=== PATIENT | female | born 2000 | race Caucasian/White ===

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

== ENCOUNTER 2021-04-11 09:44 | Emergency (ER) | payer OTHER, MEDICAID ==
[~2021-04-11] VITALS: Ht 175.3 cm; Wt 145.6 kg
--- OUTSIDE RECORDS SUMMARY | 2021-04-11 09:55 | CCD ---
Author Author [facility] Organization [facility] Address Unknown Phone Unavailable Care Team Providers Care Certified [place] Administrator Name Role Phone Maring, Darshan PA Unavailable Unavailable Maring, Darshan PA Unavailable Unavailable Maring, Darshan PA Unavailable Unavailable Maring, Darshan PA Unavailable Unavailable Maring, Darshan PA Unavailable Unavailable Maring, Darshan PA Unavailable Unavailable Maring, Darshan PA Unavailable Unavailable Maring, Darshan PA Unavailable Unavailable Maring, Darshan PA Unavailable Unavailable Maring, Darshan PA Unavailable Unavailable Maring, Darshan PA Unavailable Unavailable Maring, Darshan PA Unavailable Unavailable Maring, Darshan PA Unavailable Unavailable Maring, Darsahn PA Unavailable Unavailable Maring, Darshan PA Unavailable Unavailable Maring, Darshan PA Unavailable Unavailable Dille, E Lorena DDS Unavailable Unavailable Dille, E Lorena DDS Unavailable Unavailable Dille, E Lorena DDS Unavailable Unavailable Dille, E Lorena DDS Unavailable Unavailable Re-disclosure Warning The records that you are about to access may contain information from federally-assisted alcohol or drug abuse programs. If such information is present, then the following federally mandated warning applies: This information has been disclosed to you from records protected by federal confidentiality rules (42 CFR part 2). The federal rules prohibit you from making any further disclosure of this information unless further disclosure is expressly permitted by the written consent of the person to whom it pertains or as otherwise permitted by 42 CFR part 2. A general authorization for the release of medical or other information is NOT sufficient for this purpose. The Federal rules restrict any use of the information to criminally investigate or prosecute any alcohol or drug abuse patient.The records that you are about to access may contain highly sensitive health information, the redisclosure of which is protected by Article 27-F of the [facility] Public Health law. If you continue you may have access to information: Regarding HIV / AIDS; Provided by facilities licensed or operated by the [facility] Office of Mental Health; or Provided by the [facility] Office for People With Developmental Disabilities. If such information is present, then the following [facility] mandated warning applies: This information has been disclosed to you from confidential records which are protected by state law. State law prohibits you from making any further disclosure of this information without the specific written consent of the person to whom it pertains, or as otherwise permitted by law. Any unauthorized further disclosure in violation of state law may result in a fine or long term sentence or both. A general authorization for the release of medical or other information is NOT sufficient authorization for further disc losure. Family History Family Member Name Family Member Gender Family Member Status Date o f Status Description Data Source(s) Unknown Male Problem [facility] ([facility]) Encounters Encounter Providers Location Date Indications Data Source(s ) Outpatient Attender: Darshan GUERRIER 10/11/19 05:45:18 PM EDT - 10/10/2020 06:10:53 PM EDT [facility] ([facility] ) [facility]patient [facility]: [facility] 09:42:[address] [facility] Outpatient Attender: Lorena Dyanagrady [facility] 02/19/2020 03:02:[address] [facility] Immunizations Vaccine Date Status Description Data Source(s) COVID-19 VACCINE Moderna 10/10/2020 12:00:00 AM EDT completed [facility] Vaccine Series Complete: YESThis Data wa s Submitted to [facility] Via [facility]. COVID-19 VACCINE Moderna 09/08/2020 12:00:00 AM EDT completed [facility] Vaccine Series Complete: NOThis Data was Submitted to [facility] [employer]. Medications Medication Brand Name Start Date Product Form Dose Route Admi nistrative Instructions Pharmacy Instructions Status Indications Reaction Description Data Source(s) 800 mg 10/10/2020 12:00:00 AM EDT tablet 30 TAKE ONE TABLET BY MOUTH THREE TIMES A DAY FOR 10 DAYS TAKE ONE TABLET BY MOUTH THREE TIMES A DAY FOR 10 DAYS SOLD: 10/11/2020 [facility] 4 % 10/10/2020 12:00:00 AM EDT adhesive patch,medicate d 15 APPLY 1 PATCH ONCE DAILY FOR 12 HOURS ON, 12 HOURS OFF FOR 15 DAYS APPLY 1 PATCH ONCE DAILY FOR 12 HOURS ON, 12 HOURS OFF FOR 15 DAYS SOLD: 10/11/2020 [facility] Cyclobenzaprine hydrochloride 10 MG Oral Tablet CYCLOBENZAPR INE HCL 10/10/2020 12:00:00 AM EDT tablet 10 TAKE ONE TABLET BY MOUTH AT BEDTIME FOR 10 DAYS TAKE ONE TABLET BY MOUTH AT BEDTIME FOR 10 DAYS SOLD: 10/11/2020 [facility] 875-125 mg 08/16/2020 12:00:00 AM EDT tablet 20 TAKE ONE TABLET BY MOUTH EVERY 12 HOURS FOR 10 DAYS TAKE ONE TABLET BY MOUTH EVERY 12 HOURS FOR 10 DAYS SOLD: 08/16/2020 [facility] 37.5 mg 07/08/2020 12:00:00 AM EST tablet extended release 24hr 60 TAKE ONE TABLET BY MOUTH TWICE A DAY TAKE ONE TABLET BY MOUTH TWICE A DAY SOLD: 07/08/2020 [facility] 25 mg 06/23/2020 12:00:00 AM EST capsule 30 TAKE ONE CAPSULE BY MOUTH EVERY DAY TAKE ONE CAPSULE BY MOUTH EVERY DAY SOLD: 06/28/2020 [facility] quetiapine 100 MG Oral Tablet QUETIAPINE FUMARATE 04/08/2020 12: 00:00 AM EST tablet 30 TAKE ONE TABLET BY MOUTH EVERY D AY AT BEDTIME TAKE ONE TABLET BY MOUTH EVERY DAY AT BEDTIME SOLD: 04/14/2020 [facility] Clonidine Hydrochloride 0.3 MG Oral Tablet CLONIDINE HCL 04/08/2020 12:00:00 AM EST tablet 30 TAKE ONE TABLET BY MOUTH KRYSTAL RY DAY AT BEDTIME TAKE ONE TABLET BY MOUTH EVERY DAY AT BEDTIME SOLD: 04/14/2020 [facility] Clonidine Hydrochloride 0.3 MG Oral Tablet CLONIDINE HCL 03/02/2020 12:00:00 AM EDT tablet 30 TAKE ONE TABLET BY MOUTH KRYSTAL RY DAY AT BEDTIME TAKE ONE TABLET BY MOUTH EVERY DAY AT BEDTIME SOLD: 03/02/2020 [facility] quetiapine 100 MG Oral Tablet QUETIAPINE FUMARATE 03/02/2020 12: 00:00 AM EDT tablet 30 TAKE ONE TABLET BY MOUTH EVERY D AY AT BEDTIME TAKE ONE TABLET BY MOUTH EVERY DAY AT BEDTIME SOLD: 03/02/2020 [facility] 5 mg 02/27/2020 12:00:00 AM EDT tablet 30 TAKE ONE TABLET BY MOUTH EVERY NIGHT TAKE ONE TABLET BY MOUTH EVERY NIGHT SOLD: 04/14/2020 [facility] 5 mg 02/27/2020 12:00:00 AM EDT tablet 30 TAKE ONE TABLET BY MOUTH EVERY NIGHT TAKE ONE TABLET BY MOUTH EVERY NIGHT SOLD: 03/02/2020 [facility] 5 mg 02/27/2020 12:00:00 AM EDT tablet 30 TAKE ONE TABLET BY MOUTH EVERY NIGHT TAKE ONE TABLET BY MOUTH EVERY NIGHT SOLD: 06/28/2020 [facility] 20 mg 02/26/2020 12:00:00 AM EDT capsule 30 TAKE 1 CAPSULE BY MOUTH ONCE DAILY TAKE 1 CAPSULE BY MOUTH ONCE DAILY SOLD: 06/28/2020 [facility] 20 mg 02/26/2020 12:00:00 AM EDT capsule 30 TAKE 1 CAPSULE BY MOUTH ONCE DAILY TAKE 1 CAPSULE BY MOUTH ONCE DAILY SOLD: 03/02/2020 [facility] 25 mg 02/26/2020 12:00:00 AM EDT capsule 30 TAKE ONE CAPSULE BY MOUTH EVERY DAY TAKE ONE CAPSULE BY MOUTH EVERY DAY SOLD: 05/31/2020 [facility] 25 mg 02/26/2020 12:00:00 AM EDT capsule 30 TAKE ONE CAPSULE BY MOUTH EVERY DAY TAKE ONE CAPSULE BY MOUTH EVERY DAY SOLD: 04/14/2020 [facility] 20 mg 02/26/2020 12:00:00 AM EDT capsule 30 TAKE 1 CAPSULE BY MOUTH ONCE DAILY TAKE 1 CAPSULE BY MOUTH ONCE DAILY SOLD: 04/14/2020 [facility] 25 mg 02/26/2020 12:00:00 AM EDT capsule 30 TAKE ONE CAPSULE BY MOUTH EVERY DAY TAKE ONE CAPSULE BY MOUTH EVERY DAY SOLD: 03/02/2020 [facility] Insurance Providers Payer name Policy type / Coverage type Policy ID Covered democrat ID Covered democrat's relationship to [place] Policy [place] Plan Information Medicaid-[facility] Medicaid [id number] Family Dependent [id number] Medicaid-[facility] Medicaid [id number] Family Dependent [id number] Medicaid-Pcap Medicaid [id number] [id number]. [id number] Family Dependent [id number] Medicaid-Pcap Medicaid [id number] 2.16.840.1.725455.3.227.99. [id number] Family Dependent [id number] Medicaid-Pcap Medicaid [id number] 2.16.840.1.777351.3.227.99. [id number] Family Dependent [id number] Medicaid-Pcap Medicaid [id number] 2.16.840.1.008048.3.227.99. [id number] Family Dependent [id number] Medicaid-Pcap Medicaid [id number] Family Dependent Medicaid-Pcap Medicaid [id number] [id number]. [id number] Family Dependent [id number] Medicaid-Pcap Medicaid [id number] 2.16.840.1.316115.3.227.99. [id number] Family Dependent [id number] Medicaid-Pcap Medicaid [id number] 2.16.840.1.227561.3.227.99. [id number] Family Dependent [id number] Medicaid-Pcap Medicaid [id number] 2.16.840.1.306909.3.227.99. [id number] Family Dependent [id number] Medicaid-Pcap Medicaid [id number] 2.16.840.1.130011.3.227.99. [id number] Family Dependent [id number] Medicaid-Pcap Medicaid [id number] 2.16.840.1.128572.3.227.99. [id number] Family Dependent [id number] Medicaid-Pcap Medicaid [id number] 2.16.840.1.065415.3.227.99. [id number] Family Dependent [id number] Medicaid-Pcap Medicaid [id number] 2.16.840.1.797593.3.227.99. [id number] Family Dependent [id number] [employer]/BS Commercial [id number] Family Dependent [id number] [employer] Commercial [id number] Family Dependent MEDICAID M [id number] Self [id number] [facility] Plan Health Maintenance Organization (O) [id number] Family Dependent [id number] [facility] Plan Health Maintenance Organization (O) [id number] 2.16.840.1.9[id number] Family Dependent [id number] [facility] Plan Health Maintenance Organization (O) [id number] 2.16.840.1.6[id number] Family Dependent [id number] [facility] Plan Health Maintenance Organization (HMO) [id number] 2.16.840.1.0[id number] Family Dependent [id number] [facility] Plan Health Maintenance Organization (O) [id number] 2.16.840.1.703262.3.227.99.4877.9766.47697 Family Dependent [id number] [facility] Health Maintenance Organization (HMO) [id number] 2.16.84[id number] Family Dependent [id number] [facility] Plan Health Maintenance Organization (O) [id number] 2.16.840.1.1[id number] Family Dependent [id number] [facility] Plan Health Maintenance Organization (HMO) [id number] 2.16.840.1.927771.3.227.99.4877.9766.33131 Family Dependent [id number] [facility] Plan Health Maintenance Organization (HMO) [id number] 2.16.840.1.146506.3.227.99.4877.9766.27810 Family Dependent [id number] [facility] Health Maintenance Organization (HMO) [id number] 2.16.840.1.1[id number] Family Dependent [id number] [facility] Health Maintenance Organization (HMO) [id number] Family Dependent [facility] Health Maintenance Organization (HMO) [id number] 2.16.84[id number] Family Dependent [id number] [facility] Plan Health Maintenance Organization (HMO) [id number] 2.16.840.1.0[id number] Family Dependent [id number] [facility] Plan Health Maintenance Organization (HMO) [id number] 2.16.840.1.829300.3.227.99.4877.9766.57709 Family Dependent [id number] [facility] Plan Health Maintenance Organization (HMO) [id number] 2.16.840.1.5[id number] Family Dependent [id number] [facility] Plan Health Maintenance Organization (HMO) [id number] Family Dependent [facility] I [id number] Self [id number] [facility] Plan Health Maintenance Organization (HMO) [id number] 2.16.84[id number] Family Dependent [id number] [facility] I [id number] Self [id number] [facility] Plan Health Maintenance Organization (HMO) [id number] 2.16.840.1.3[id number] Family Dependent [id number] D Managed Care [facility] P [id number] S [id number] [facility] I [id number] Self [id number] Medicaid Dental S [id number] S [id number] Managed Care [facility] P [id number] S [id number] [facility] [id number] SP [id number] [facility] Plan Health Maintenance Organization (HMO) [id number] 2.16.840.1.0[id number] Self [id number] [facility] Plan Health Maintenance Organization (HMO) [id number] 2.16.840.1.784800.3.227.99.4877.9766.64310 Self [id number] [facility] Plan Health Maintenance Organization (HMO) [id number] 2.16.840.1.327567.3.227.99.4877.9766.26553 Self [id number] [facility] Plan Health Maintenance Organization (HMO) [id number] 2.16.840.1.147277.3.227.99.4877.9766.98163 Self [id number] [facility] Plan Health Maintenance Organization (HMO) [id number] 2.16.840.1.695027.3.227.99.4877.9766.50898 Self [id number] [facility] Plan Health Maintenance Organization (HMO) [id number] 2.16.840.1.310919.3.227.99.4877.9766.75306 Self [id number] [facility] Health Maintenance Organization (HMO) [id number] 2.16.840.1.736310.3.227.99.4877.9766.20574 Self [id number] [facility] COMMUNITY [facility] [id number] SP [id number] [facility] Plan Health Maintenance Organization (HMO) [id number] 2.16.840.1.877106.3.227.99.4877.9766.23552 Self [id number] [facility] Health Maintenance Organization (HMO) [id number] 2.16.840.1.363468.3.227.99.4877.9766.39967 Self [id number] [facility] Plan Health Maintenance Organization (HMO) [id number] 2.16.840.1.909704.3.227.99.4877.9766.36708 Self [id number] [facility] Commercial [id number] 2.16.840.1.572439.3.22 7.99.991.834369.0 Self [id number] [facility] Commercial [id number] 2.16.840.1.643348.3.22 7.99.991.081063.0 Self [id number] [facility] Commercial [id number] 2.16.840.1.790716.3.22 7.99.991.185837.0 Self [id number] [facility] Commercial [id number] 2.16.840.1.237563.3.22 7.99.991.154304.0 Self [id number] [facility] Commercial [id number] 2.16.840.1.051337.3.22 7.99.991.121727.0 Self [id number] [facility] Commercial [id number] 2.16.840.1.333001.3.22 7.99.991.194614.0 Self [id number] Managed Care - [facility] Community Plan P [id number] S [id number] [facility] Commercial Insurance [employer]. [id number] Self [id number] [facility] [id number] SP [id number] [facility](MCAID) O [id number] S [id number] Managed Care - [facility] Community Plan P [id number] S [id number] [facility] COMMUNITY PLAN MCDO [id number] SP [id number] [facility](MCAID) O [id number] C [id number] [facility] Plan Health Maintenance Organization (HMO) [id number] Family Dependent Jaqueline Vincent [id number] [facility] Plan Health Maintenance Organization (HMO) [id number] Family Dependent Jaqueline Vincent [id number] Medicaid-Pcap Medicaid [id number] 2.16840.1.744932.3.227.99. [id number] Family Dependent Jaqueline Vincent [id number] [facility] [id number] SP [id number] [facility] BC/BS Commercial [id number] Family Dependent Jaqueline Vincent [id number] Medicaid S [id number] S [id number] Managed Care - Community Plan [facility] P [id number] S [id number] D [facility] Care Dental O [id number] S [id number] [facility](MCAID) P UNAVAILABLE [id number] S UNAVAILABLE [facility] CHANDLER [id number] SP [id number] PCP [facility] COMMUNITY PL O [id number] S [id number] PCP [facility] COMMUNITY PL O [id number] S [id number] [id number] S [id number] [employer] COMMUNITY PLAN MCDHMO [id number] MO2 [id number] [facility] O [id number] S [id number] Problems, Conditions, and Diagnoses Code Display Name Description Problem Type Effective Dates Data Source(s) V01.79 Contact with and (suspected) exposure to other viral communicable diseases Contact with and (suspected) exposure to other viral communicable diseases 02/22/2020 09:41:02 AM EDT [facility] Surgeries/Procedures No Information Results ID Date Data Source [id number] 01/01/2021 12:00:00 AM EDT [facility] Name Value Range Interpretation Code Description Data Natalee rce(s) Supporting Document(s) SARS-CoV2 Rapid Antigen Negative [facility] This lab was ordered by [facility] and reported by [facility]. Procedure Social History No Information Vital Signs ID Date Data Source UNK Name Value Range Interpretation Code Description Data Source(s) Body height 68.70 [in_i] 68.70 [in_i] [facility] ([facility]) 5'8.70" Body height [Percentile] 96 % 96 % [facility] ([facility]) Body height 174.5 cm 174.5 cm [facility] ([facility] Body weight 310.00 [lb_av] 310.00 [lb_av] MEDEN T ([facility]) Body weight 140.616 kg 140.616 kg MADHAVI ([facility]) Body mass index (BMI) [Ratio] 46.2 kg/m2 46.2 k g/m2 [facility] Body mass index (BMI) [Percentile] 99 % 9 9 % [facility] Body temperature 97.1 [degF] 97.1 [degF] MADHAVI ([facility]) Heart rate 97 /min 97 /min [facility]HAVI ([facility]) Respiratory rate 20 /min 20 /min [facility] Oxygen saturation in Arterial blood by Pulse oximetry 98 % 98 % MADHAVI ([facility]) Systolic blood pressure 122 mm[Hg] 122 mm[Hg] M ISABEL ([facility]) Diastolic blood pressure 80 mm[Hg] 80 mm[Hg] MADHAVI ([facility])
[2021-04-11] MEDS ORDERED: ACETAMINOPHEN TAB 650MG DOSE (2X325MG) PO ONE (12:40)
[2021-04-11 13:48] VITALS: BP 128/81
== END 2021-04-11 13:56 | disposition home or self-care (01) ==
LOC: M ED 09:44
DX: J06.9 Acute upper respiratory infection, unspecified (principal); Z20.822 Contact with and (suspected) exposure to COVID-19
CPT/HCPCS: 87880; 99283; U0003

== ENCOUNTER 2022-05-31 18:15 | Emergency (ER) | payer OTHER, MEDICAID ==
[~2022-05-31] VITALS: Ht 175.3 cm; Wt 151.1 kg
[2022-06-01 04:48] VITALS: BP 121/75
== END 2022-06-01 04:49 | disposition home or self-care (01) ==
LOC: M ED 18:15
DX: R04.0 Epistaxis (principal); F31.9 Bipolar disorder, unspecified

== ENCOUNTER → 2022-11-02 | Outpatient (REF) | payer OTHER, MEDICAID ==
[2022-11-02 13:21] LABS: BASO % 0.3 % (0.0-1.0); EOS # 0.1 10^3/uL (0.0-0.5); EOS % 0.7 % (0.0-3.0); HEMATOCRIT 37.6 % (36.0-47.0); HEMOGLOBIN 11.7 g/dl (12.0-15.5); LYMPH # 2.3 10^3/uL (1.5-5.0); LYMPH % 29.9 % (24.0-44.0); MEAN CORPUSCULAR HEMOGLOBIN 24.9 pg (27.0-33.0); MEAN CORPUSCULAR HGB CONC 31.1 g/dl (32.0-36.5); MONO # 0.5 10^3/uL (0.0-0.8); NEUTROPHILS # 4.7 10^3/uL (1.5-8.5); NEUTROPHILS % 61.8 % (36.0-66.0); PLATELET COUNT, AUTOMATED 281 10^3/uL (150-450); WHITE BLOOD COUNT 7.5 10^3/uL (4.0-10.0)
[2022-11-02 13:45] LABS: HEMOGLOBIN A1c 5.2 % (4.0-6.0); IRON (FE) 30 UG/DL (50-170); TOTAL IRON BINDING CAPACITY 299 UG/DL (250-425)
[2022-11-02 13:46] LABS: ALBUMIN 3.9 G/DL (3.2-5.2); ALKALINE PHOSPHATASE 85 U/L (46-116); ALT/SGPT < 9 U/L (7.0-40); AST/SGOT 9 U/L (<34); BILIRUBIN,TOTAL 0.4 MG/DL (0.3-1.2); BLOOD UREA NITROGEN 13 MG/DL (9-23); CALCIUM LEVEL 8.3 MG/DL (8.5-10.1); CARBON DIOXIDE LEVEL 27 MMOL/L (20-31); CHLORIDE LEVEL 105 MMOL/L (98-107); CHOLESTEROL LEVEL 144 MG/DL (<200); CHOLESTEROL RISK RATIO 2.99 (<5); CREATININE FOR GFR 0.73 MG/DL (0.55-1.30); GLOMERULAR FILTRATION RATE > 60.0 (>60); GLUCOSE, FASTING 82 MG/DL (60-100); HDL CHOLESTEROL 48.1 MG/DL (>40); LDL CHOLESTEROL 82.1 MG/DL (<100); NON-HDL-C 95.9 MG/DL; POTASSIUM SERUM 4.3 MMOL/L (3.5-5.1); SODIUM LEVEL 140 MMOL/L (136-145); THYROID STIMULATING HORMONE 5.845 uIU/ML (0.55-4.78); TOTAL PROTEIN 7.1 G/DL (5.7-8.2); TRIGLYCERIDES LEVEL 69 MG/DL (<150)
== END ==
LOC: M LAB REF 12:36
PROVIDERS: ATTEND Nurse Practitioner Family
DX: Z68.42 Body mass index [BMI] 45.0-49.9, adult (principal); R53.83 Other fatigue; E66.01 Morbid (severe) obesity due to excess calories

== ENCOUNTER → 2022-12-19 | Outpatient (REF) | payer OTHER ==
[2022-12-19 18:19] LABS: THYROID STIMULATING HORMONE 4.152 uIU/ML (0.55-4.78)
[2022-12-19 18:35] LABS: THYROGLOBULIN ANTIBODY > 500.0 U/ML (<60.0); THYROID PEROXIDASE ANTIBODY > 1300.0 U/ML (<60.0)
== END ==
LOC: M LAB REF 17:49
PROVIDERS: ATTEND Nurse Practitioner Family
DX: R89.1 Abnormal level of hormones in specimens from other organs, systems and tissues (principal)

== ENCOUNTER → 2023-02-15 | Outpatient (CLI) | payer OTHER | LOC: M RAD 13:43 | PROVIDERS: ATTEND Nurse Practitioner Family | DX: R89.1 Abnormal level of hormones in specimens from other organs, systems and tissues (principal) ==

== ENCOUNTER → 2023-03-26 | Outpatient (REF) | payer OTHER ==
[2023-03-26 13:45] LABS: PERCENT SATURATION 13.3 % (13.2-45.0)
[2023-03-26 13:46] LABS: FERRITIN 19.1 NG/ML (7.3-270.7)
[2023-03-26 13:47] LABS: THYROID STIMULATING HORMONE 12.663 uIU/ML (0.55-4.78)
== END ==
LOC: M LAB REF 12:25
PROVIDERS: ATTEND Nurse Practitioner Family
DX: R89.1 Abnormal level of hormones in specimens from other organs, systems and tissues (principal); E61.1 Iron deficiency

== ENCOUNTER → 2023-07-09 | Outpatient (REF) | payer OTHER | LOC: M LAB REF 12:18 | PROVIDERS: ATTEND Nurse Practitioner Family | DX: R89.1 Abnormal level of hormones in specimens from other organs, systems and tissues (principal) ==

== ENCOUNTER 2023-12-24 08:45 | Emergency (ER) | payer OTHER ==
[~2023-12-24] VITALS: Ht 175.3 cm; Wt 157.5 kg
[2023-12-24 08:48] VITALS: BP 140/88; TEMP 97.9; O2SAT 97
== END 2023-12-24 09:49 | disposition home or self-care (01) ==
LOC: M ED 08:45
DX: M79.672 Pain in left foot (principal); R22.0 Localized swelling, mass and lump, head

== ENCOUNTER → 2024-02-11 | Outpatient (REF) | payer OTHER | LOC: M LAB REF 16:30 | PROVIDERS: ATTEND Nurse Practitioner Family | DX: E03.9 Hypothyroidism, unspecified (principal) ==

== ENCOUNTER → 2024-05-08 | Outpatient (REF) | payer OTHER ==
[~2024-05-08] MED LIST changes: +METH-1387; -METH10TA
[2024-05-08 18:11] LABS: BLOOD UREA NITROGEN 11 MG/DL (9-23); CALCIUM LEVEL 9.3 MG/DL (8.5-10.1); CARBON DIOXIDE LEVEL 28 MMOL/L (20-31); CHLORIDE LEVEL 106 MMOL/L (98-107); CHOLESTEROL LEVEL 151 MG/DL (<200); CHOLESTEROL RISK RATIO 3.06 (<5); CREATININE FOR GFR 0.62 MG/DL (0.55-1.30); GLOMERULAR FILTRATION RATE > 60.0 (>60); GLUCOSE, FASTING 91 MG/DL (60-100); HDL CHOLESTEROL 49.2 MG/DL (>40); IRON (FE) 41 UG/DL (50-170); LDL CHOLESTEROL 87.6 MG/DL (<100); NON-HDL-C 101.8 MG/DL; PERCENT SATURATION 13.4 % (13.2-45.0); SODIUM LEVEL 140 MMOL/L (136-145); TOTAL IRON BINDING CAPACITY 305 UG/DL (250-425); TRIGLYCERIDES LEVEL 71 MG/DL (<150)
[2024-05-08 18:14] LABS: FERRITIN 17.1 NG/ML (7.3-270.7); THYROID STIMULATING HORMONE 8.793 uIU/ML (0.55-4.78)
[2024-05-08 18:17] LABS: HEMOGLOBIN A1c 5.3 % (4.0-6.0)
[2024-05-08 18:37] LABS: BASO % 0.3 % (0.0-1.0); EOS # 0.1 10^3/uL (0.0-0.5); EOS % 0.8 % (0.0-3.0); HEMATOCRIT 38.6 % (36.0-47.0); HEMOGLOBIN 12.1 g/dl (12.0-15.5); LYMPH # 2.7 10^3/uL (1.5-5.0); LYMPH % 35.5 % (24.0-44.0); MEAN CORPUSCULAR HEMOGLOBIN 24.9 pg (27.0-33.0); MEAN CORPUSCULAR HGB CONC 31.3 g/dl (32.0-36.5); MEAN CORPUSCULAR VOLUME 79.4 fl (80.0-96.0); MONO # 0.5 10^3/uL (0.0-0.8); MONO % 6.9 % (2.0-8.0); NEUTROPHILS # 4.3 10^3/uL (1.5-8.5); NEUTROPHILS % 56.4 % (36.0-66.0); PLATELET COUNT, AUTOMATED 296 10^3/uL (150-450); RED BLOOD COUNT 4.86 10^6/uL (4.00-5.40); WHITE BLOOD COUNT 7.6 10^3/uL (4.0-10.0)
== END ==
LOC: M LAB REF 17:26
PROVIDERS: ATTEND Nurse Practitioner Family
DX: E03.9 Hypothyroidism, unspecified (principal); E61.1 Iron deficiency; E66.9 Obesity, unspecified

== ENCOUNTER 2024-07-01 08:46 | Emergency (ER) | payer OTHER ==
[~2024-07-01] VITALS: Ht 175.3 cm; Wt 162.1 kg
[2024-07-01] MEDS ORDERED: LEVO75TA4 (08:56)
[2024-07-01 09:47] LABS: HEMATOCRIT 38.9 % (36.0-47.0); HEMOGLOBIN 12.4 g/dl (12.0-15.5); MEAN CORPUSCULAR HEMOGLOBIN 24.7 pg (27.0-33.0); MEAN CORPUSCULAR HGB CONC 31.9 g/dl (32.0-36.5); MEAN CORPUSCULAR VOLUME 77.5 fl (80.0-96.0); PLATELET COUNT, AUTOMATED 302 10^3/uL (150-450); RED BLOOD COUNT 5.02 10^6/uL (4.00-5.40); WHITE BLOOD COUNT 8.8 10^3/uL (4.0-10.0)
[2024-07-01 10:10] LABS: BLOOD UREA NITROGEN 21 MG/DL (9-23); CALCIUM LEVEL 8.6 MG/DL (8.5-10.1); CARBON DIOXIDE LEVEL 24 MMOL/L (20-31); CHLORIDE LEVEL 105 MMOL/L (98-107); CREATININE FOR GFR 0.69 MG/DL (0.55-1.30); GLOMERULAR FILTRATION RATE > 60.0 (>60); GLUCOSE, FASTING 91 MG/DL (60-100); POTASSIUM SERUM 4.2 MMOL/L (3.5-5.1); SODIUM LEVEL 142 MMOL/L (136-145)
[2024-07-01 10:13] LABS: THYROID STIMULATING HORMONE 14.073 uIU/ML (0.55-4.78)
[2024-07-01 10:17] LABS: HCG, SERUM QUALITATIVE NEGATIVE (NEGATIVE)
[2024-07-01] MEDS: ACETAMINOPHEN 325 MG TAB PO ONE (11:11)
[2024-07-01 11:18] VITALS: BP 140/98; TEMP 96.3; O2SAT 96
== END 2024-07-01 11:23 | disposition home or self-care (01) ==
LOC: M ED 08:46
DX: R42 Dizziness and giddiness (principal); E03.9 Hypothyroidism, unspecified; D64.9 Anemia, unspecified; G47.33 Obstructive sleep apnea (adult) (pediatric); F31.9 Bipolar disorder, unspecified; Z79.899 Other long term (current) drug therapy